=== PATIENT | female | born 1940 | race Caucasian/White ===

== ENCOUNTER 2016-04-01 12:41 | Inpatient (IN) | payer OTHER ==
[~2016-04-01] VITALS: Ht 172.7 cm; Wt 74.9 kg
[~2016-04-01 12:41] MED LIST: ACET325T96 PO; AZEL15GE TOP; BENZ100C18 PO; CARB0.25 OPB; HYG/25 PO; LEVO75TA36 PO; METO-551 PO; NMN10 PO; POTA10CA28 PO; RIVA1DIS TD; SIMV20TA5 PO; WARF-246 PO; WARF-280 PO; [UNRECOGNIZED DRUG - CODE] PO
[2016-04-01] MEDS ORDERED: SODIUM CHLORIDE 0.9% 1000ML 1,000 ML IV STA ×2 (12:56→14:28)
[2016-04-01] MEDS ORDERED: SODIUM CHLORIDE 0.9% 1000ML 250 ML IV STA (12:56)
--- NOTE | 2016-04-01 13:00 | EMERGENCY ROOM VISIT NOTE ---
History Report prepared by Dionisio: Jeff Pennington Under the Supervision of: Dr. Lg Waldrop M.D. First contact with patient: 12:49 Stated Complaint: ALTERED MENTAL STATUS History of Present Illness The patient is a 76 year old female who presents to the Emergency Room with complaints of persistent altered mental status that started prior to arrival today. Per the nursing staff, the patient is usually combative in her wheelchair but she was not combative today. The patient has dementia and Alzheimer's. She has not had any recent trauma and does not have a fever. History is limited secondary to patient's altered mental status. Source of History: nursing staff History Limited By: AMS Onset: Prior to arrival today Position: other (global - AMS) Symptom Intensity: not combative today which is not normal Associated Symptoms: No fevers Note: Associated symptoms: No recent trauma. Review of Systems ROS limited secondary to patient's altered mental status. Past Medical & Surgical Medical Problems: (1) Alzheimer's disease (2) Parkinson's disease (3) UTI (urinary tract infection) Old medical records were reviewed. Nurse's notes were reviewed and I agree with. Family History Patient reports no known family medical history. Social History Smoking Status: Never Smoker Alcohol Use: none Drug Use: none Housing Status: assisted living Occupation Status: retired Current/Historical Medications Scheduled Acetaminophen Tab (Tylenol), 650 MG PO BID@0830@2030 Carboxymethylcellulose-Glyceri (Refresh Optive Advanced), 1 DROP OPB QID Chlorthalidone (Hygroton), 25 MG PO DAILY Levothyroxine Sodium (Levothyroxine Sodium), 50 MCG PO QAM Memantine (Namenda), 10 MG PO BID Metoprolol Tartrate (Lopressor) (Lopressor), 25 MG PO BID Potassium Chloride (Micro-K Ext Rel), 60 MEQ PO QAM Potassium Chloride (Micro-K Ext Rel), 40 MEQ PO QPM Rivastigmine (Exelon), 1 PATCH TD DAILY Sennosides-Docusate Sodium (Senna Plus), 1 TAB PO QAM Simvastatin (Zocor), 20 MG PO HS Warfarin Sod (Jantoven), 5 MG PO QAM Allergies Coded Allergies: Cortisone (Verified Allergy, Intermediate, HIVES, 01/04/15) Triamcinolone (Verified Allergy, Intermediate, FACIAL SWELLING/RASH - TO KENALOG, 01/04/15) Iodinated Contrast Media (Verified Allergy, Unknown, hives, 04/01/16) Physical Exam Vital Signs Date Time Temp Pulse Resp B/P Pulse Ox O2 Delivery O2 Flow Rate FiO2 04/01/16 14:24 132 04/01/16 13:51 83 20 142/100 98 Room Air 04/01/16 13:01 36.3 85 20 118/71 97 Room Air Physical Exam General: Chronically ill appearing old female who is sleepy but arousable, she moans but is otherwise non-verbal, appears to move all 4 extremities, breathing comfortably on room air. Normal speech HEENT: Normal cephalic atraumatic. Pupils are equal round and reactive to light. Extraocular movements are intact. Oropharynx is pink with moist mucous membranes. No swelling of the mouth lips or tongue. Neck: Supple with a midline trachea. No meningeal signs or stiffness, no JVD or bruits. No Stridor. Chest: Clear to auscultation bilaterally. No wheezes or rhonchi. No increased work of breathing. Heart: regular rate and rhythm. Abdomen: Soft nontender, nondistended without rebound guarding or rigidity. Extremities: No cyanosis clubbing or edema. No calf tenderness or assymetry Spine/Back. Non tender to palpation. No CVA tenderness Skin: Good turgor without rashes. Neurologic exam: Baseline dementia, moves all 4 extremities, non-verbal with moaning. Medical Decision & Procedures ER Provider Diagnostic Interpretation: X ray results as stated below per my interpretation and radiologist interpretation. Other radiology results as stated below per my review and radiologist interpretation: CT OF THE HEAD WITHOUT CONTRAST CLINICAL HISTORY: Altered mental status. COMPARISON STUDY: Head CT January 01, 2015. CT DOSE: 614.27 mGy.cm TECHNIQUE: Helical axial images of the head were obtained without IV contrast. Automated exposure control was utilized for the study. FINDINGS: No acute intracranial hemorrhage, midline shift or mass effect is present. Ventricular dilatation is unchanged. The basilar cisterns are patent. There are no extra-axial collections. Chew-white differentiation is maintained. There are no findings to suggest acute dural sinus thrombosis or acute territorial infarct. There are no significant calvarial abnormalities. Visualized portions of the sinuses and mastoid air cells are clear. IMPRESSION: No acute intracranial findings. No significant change since prior exam. Electronically signed by: Jaxon Cleary M.D. 04/01/2016 1:46 PM Dictated Date/Time: 04/01/2016 1:44 PM CHEST ONE VIEW PORTABLE CLINICAL HISTORY: Sepsis. COMPARISON STUDY: Chest radiograph January 03, 2015. FINDINGS: Lung volumes are normal. There is no pneumothorax or pleural effusion. Minimal left basilar opacity is noted. There is no evidence of pulmonary edema. Cardiomediastinal silhouette is stable. IMPRESSION: Minimal left basilar opacity which could reflect atelectasis or mild consolidation. Electronically signed by: Jaxon Cleary M.D. 04/01/2016 1:41 PM Dictated Date/Time: 04/01/2016 1:40 PM Laboratory Results 04/01/16 13:10 Red Blood Count 4.01, Mean Corpuscular Volume 93.0, Mean Corpuscular Hemoglobin 31.4, Mean Corpuscular Hemoglobin Concent 33.8, Mean Platelet Volume 9.5, Neutrophils (%) (Auto) 78.7, Lymphocytes (%) (Auto) 14.6, Monocytes (%) (Auto) 6.3, Eosinophils (%) (Auto) 0.0, Basophils (%) (Auto) 0.2, Neutrophils # (Auto) 3.62, Lymphocytes # (Auto) 0.67, Monocytes # (Auto) 0.29, Eosinophils # (Auto) 0.00, Basophils # (Auto) 0.01 04/01/16 13:10 Test 04/01/16 12:56 04/01/16 13:00 04/01/16 13:10 04/01/16 13:14 Bedside Glucose 117 mg/dl (70-90) Urine Color YELLOW Urine Appearance CLEAR (CLEAR) Urine pH 5.0 (4.5-7.5) Urine Specific [place] 1.020 (1.000-1.030) Urine Protein NEG (NEG) Urine Glucose (UA) NEG (NEG) Urine Ketones NEG (NEG) Urine Occult Blood 2+ (NEG) Urine Nitrite POS (NEG) Urine Bilirubin NEG (NEG) Urine Urobilinogen NEG (NEG) Urine Leukocyte Esterase NEG (NEG) Urine WBC (Auto) 10-30 /hpf (0-5) Urine RBC (Auto) 0-4 /hpf (0-4) Urine Hyaline Casts (Auto) 1-5 /lpf (0-5) Urine Epithelial Cells (Auto) 20-30 /lpf (0-5) Urine Bacteria (Auto) 4+ (NEG) Urine Yeast (Auto) (NONE PRSENT) White Blood Count 4.60 K/uL (4.8-10.8) Red Blood Count 4.01 M/uL (4.2-5.4) Hemoglobin 12.6 g/dL (12.0-16.0) Hematocrit 37.3 % (37-47) Mean Corpuscular Volume 93.0 fL (80-100) Mean Corpuscular Hemoglobin 31.4 pg (25-34) Mean Corpuscular Hemoglobin Concent 33.8 g/dl (32-36) Platelet Count 154 K/uL (130-400) Mean Platelet Volume 9.5 fL (7.4-10.4) Neutrophils (%) (Auto) 78.7 % Lymphocytes (%) (Auto) 14.6 % Monocytes (%) (Auto) 6.3 % Eosinophils (%) (Auto) 0.0 % Basophils (%) (Auto) 0.2 % Neutrophils # (Auto) 3.62 K/uL (1.4-6.5) Lymphocytes # (Auto) 0.67 K/uL (1.2-3.4) Monocytes # (Auto) 0.29 K/uL (0.11-0.59) Eosinophils # (Auto) 0.00 K/uL (0-0.5) Basophils # (Auto) 0.01 K/uL (0-0.2) RDW Standard Deviation 46.9 fL (36.4-46.3) RDW Coefficient of Variation 13.7 % (11.5-14.5) Immature Granulocyte % (Auto) 0.2 % Immature Granulocyte # (Auto) 0.01 K/uL (0.00-0.02) Prothrombin Time 23.1 SECONDS (9.0-12.0) Prothromb Time International Ratio 2.1 (0.9-1.1) Activated Partial Thromboplast Time 33.0 SECONDS (21.0-31.0) Partial Thromboplastin Ratio 1.3 Anion Gap 8.0 mmol/L (3-11) Est Creatinine Clear Calc Drug Dose 59.9 ml/min Estimated GFR () 84.4 Estimated GFR (Non- 72.8 BUN/Creatinine Ratio 25.4 (10-20) Calcium Level 9.8 mg/dl (8.5-10.1) Total Bilirubin 0.6 mg/dl (0.2-1) Aspartate Amino Transf (AST/SGOT) 47 U/L (15-37) Alanine Aminotransferase (ALT/SGPT) 62 U/L (12-78) Alkaline Phosphatase 75 U/L (45-117) Total Protein 7.3 gm/dl (6.4-8.2) Albumin 3.6 gm/dl (3.4-5.0) Globulin 3.7 gm/dl (2.5-4.0) Albumin/Globulin Ratio 1.0 (0.9-2) Bedside Lactic Acid Venous 2.04 mmol/L (0.90-1.70) Test 04/01/16 13:16 Bedside Troponin I 0.000 ng/ml (0-0.045) Laboratory studies as stated above per my review. Medications Administered Medications (Trade) Dose Ordered Sig/Ariana Route Start Time Stop Time Status Last Admin Dose Admin Sodium Chloride 250 ml @ 999 mls/hr Q16M STAT IV 04/01/16 12:56 04/01/16 13:11 DC 04/01/16 12:56 999 MLS/HR Sodium Chloride 1,000 ml @ 100 mls/hr Q10H STAT IV 04/01/16 12:56 04/01/16 16:40 DC 04/01/16 12:56 100 MLS/HR Sodium Chloride (Nss 1000ml) 1,000 ml @ 999 mls/hr Q1H1M STAT IV 04/01/16 14:28 04/01/16 15:28 DC 04/01/16 14:28 999 MLS/HR Levofloxacin (Levaquin / D5W) 750 mg NOW ONCE IV 04/01/16 14:30 04/01/16 14:31 DC 04/01/16 14:40 750 MG ECG Indication: altered mental status Rate (beats per minute): 82 Rhythm: atrial fibrillation, other (poor baseline) Findings: PVC (occasional), no acute ischemic change, other (low voltage) Comparison ECG Date: Compared to 01/03/2015, rate has decreased ED Course 1251: Past medical records reviewed. The patient was evaluated in room B7, history and physical examination limited secondary to patient's AMS. 1256: Ordered NSS 1000 ml @ 100 mls/hr IV, NSS 250 ml @ 999 mls/hr IV. 1333: I talked to a family member of the patient. 1428: Ordered NSS 1000 ml @ 999 mls/hr IV. 1430: Ordered Levaquin / D5W 750 mg IV. 1431: I discussed the patient with Dr. Brendon VEE engineering consultant - he will evaluate the patient for further treatment. 1433: I reevaluated the patient and she is resting comfortably. The patient's family verbally expressed agreement and understanding of the treatment plan. The patient will be evaluated for further treatment. Medical Decision Differential diagnoses include: sepsis, dehydration, hypoglycemia, electrolyte or metabolic abnormality, UTI, intracranial process. This patient comes in as described above. She was placed in room B7. She is here for treatment and evaluation of altered mental status. She does have ahistory of severe dementia however is much more sedate than normal and normally she is very active. She does get frequent UTIs. IV access was established , she's been normotensive. . She was hydrated IV normal saline. Chest x-ray, EKG,CAT scan of her head and multiple blood testing was obtained. She has no acute intracranial process seen. Her lactic acid is mildly elevated just over 2. She has no white count. Her urinalysis does suggest a UTI. She was given fluid boluses while she was here additionally she was given Levaquin 750 mg IV. I do think she needs to be admitted for sepsis related to a UTI and altered mental status related to this. I discussed the case with her daughter who is at the bedside and she agrees with the plan. The patient is a DO NOT RESUSCITATE. I have consulted Dr. Kramer and they will admit her. Consults Time Called: 1428 Consulting Physician: Dr. Brendon VEE engineering consultant Returned Call: [phone] I discussed the patient with Dr. Brendon VEE engineering consultant - he will evaluate the patient for further treatment. Impression Primary Impression: Sepsis Additional Impressions: UTI (urinary tract infection), Altered mental status Scribe Attestation The scribe's documentation has been prepared under my direction and personally reviewed by me in its entirety. I confirm that the note above accurately reflects all work, treatment, procedures, and medical decision making performed by me. Departure Information Dispostion Being Evaluated By Hospitalist Referrals [place], Heena (PCP)
[2016-04-01] MEDS ORDERED: METO25TA56 PO (13:05)
[2016-04-01] MEDS ORDERED: LEVO50TA6 PO (13:05)
[2016-04-01] MEDS ORDERED: POTA10CA28 PO ×2 (13:05)
[2016-04-01] MEDS ORDERED: SENN1TAB65 PO (13:05)
[2016-04-01] MEDS ORDERED: WARF5TAB7 PO (13:05)
[2016-04-01 13:27] LABS: BASO % 0.2 %; BASO ABS # 0.01 K/uL (0-0.2); COMPLETE YES; HEMATOCRIT 37.3 % (37-47); IG% 0.2 %; LYMPH % 14.6 %; LYMPH ABS # 0.67 K/uL (1.2-3.4); MEAN CORPUSCULAR HEMOGLOBIN 31.4 pg (25-34); MEAN CORPUSCULAR HGB CONC 33.8 g/dl (32-36); MEAN PLATELET VOLUME 9.5 fL (7.4-10.4); MONO % 6.3 %; NEUT % 78.7 %; PLATELET COUNT 154 K/uL (130-400); RED BLOOD COUNT 4.01 M/uL (4.2-5.4)
[2016-04-01 13:38] LABS: MANUAL MICROSCOPIC REQUIRED? NO; REVIEW REQ? YES; URINE APPEARANCE CLEAR (CLEAR); URINE BILIRUBIN NEG (NEG); URINE COLOR YELLOW; URINE EPITHELIAL CELL AUTO 20-30 /lpf (0-5); URINE NITRITE POS (NEG); UROBILINOGEN NEG (NEG)
[2016-04-01 13:40] LABS: INR 2.1 (0.9-1.1); PARTIAL THROMBOPLASTIN RATIO 1.3; PROTHROMBIN TIME (PATIENT) 23.1 SECONDS (9.0-12.0)
--- NOTE | 2016-04-01 13:43 | DIAGNOSTIC IMAGING REPORT ---
CHEST ONE VIEW PORTABLE CLINICAL HISTORY: Sepsis. COMPARISON STUDY: Chest radiograph January 03, 2015. FINDINGS: Lung volumes are normal. There is no pneumothorax or pleural effusion. Minimal left basilar opacity is noted. There is no evidence of pulmonary edema. Cardiomediastinal silhouette is stable. IMPRESSION: Minimal left basilar opacity which could reflect atelectasis or mild consolidation. Electronically signed by: Jaxon Cleary M.D. 04/01/2016 1:41 PM Dictated Date/Time: 04/01/2016 1:40 PM
[2016-04-01 13:44] LABS: BUN/CREATININE RATIO 25.4 (10-20); CALCIUM 9.8 mg/dl (8.5-10.1); CREATININE 0.78 mg/dl (0.60-1.20); POTASSIUM 3.9 mmol/L (3.5-5.1)
--- NOTE | 2016-04-01 13:48 | DIAGNOSTIC IMAGING REPORT ---
CT OF THE HEAD WITHOUT CONTRAST CLINICAL HISTORY: Altered mental status. COMPARISON STUDY: Head CT January 01, 2015. CT DOSE: 614.27 mGy.cm TECHNIQUE: Helical axial images of the head were obtained without IV contrast. Automated exposure control was utilized for the study. FINDINGS: No acute intracranial hemorrhage, midline shift or mass effect is present. Ventricular dilatation is unchanged. The basilar cisterns are patent. There are no extra-axial collections. Chew-white differentiation is maintained. There are no findings to suggest acute dural sinus thrombosis or acute territorial infarct. There are no significant calvarial abnormalities. Visualized portions of the sinuses and mastoid air cells are clear. IMPRESSION: No acute intracranial findings. No significant change since prior exam. Electronically signed by: Jaxon Cleary M.D. 04/01/2016 1:46 PM Dictated Date/Time: 04/01/2016 1:44 PM
[2016-04-01] MEDS ORDERED: LEVAQUIN 750MG / 150ML D5W IV ONE (14:30)
[2016-04-01] MEDS ORDERED: DiphenhydrAMINE HCL 50 MG/ML VIAL IV PRN ×2 (16:00)
[2016-04-01] MEDS ORDERED: ONDANSETRON INJ 2 MG/ML 2 ML VIAL IV PRN (16:00)
[2016-04-01] MEDS ORDERED: ACETAMINOPHEN IV 100 ML IV PRN (16:00)
[2016-04-01 16:30] VITALS: BP 131/88; PULSE 80; TEMP 36.5; O2SAT 100
[2016-04-01] MEDS: NSS + 20MEQ KCL 1000ML 1,000 ML IV SCH (18:17)
[2016-04-01 18:36] VITALS: BP 131/88; PULSE 80; TEMP 36.5; O2SAT 100; Ht 172.7 cm; Wt 74.9 kg
--- NOTE | 2016-04-01 21:35 | History and Physical ---
History & Physical Date & Time of Service: Apr 01, 2016 at 21:20 Chief Complaint: Sepsis; Urinary Tract Infection Primary Care Physician: Heena Lockwood History of Present Illness Source: family, clinic records, hospital records The patient is a 76-year-old female resident with severe Alzheimer's dementia, who is a resident of [facility] care home, with a history of recurrent urinary tract infections, who is brought to the emergency department due to altered mental status that started prior to arrival today. She does not have any obvious signs of trauma or illness. Initial urinalysis looks to be infected , and the patient is presumed to have a recurrent UTI as a cause of her altered state. Past Medical/Surgical History Medical Problems: (1) Alzheimer's disease Status: Chronic (2) Parkinson's disease Status: Chronic (3) UTI (urinary tract infection) Status: Chronic Family History Patient reports no known family medical history. Social History Smoking Status: Never Smoker Smokeless Tobacco Use: No Alcohol Use: none Drug Use: none Housing status: care home Occupational Status: retired Immunizations History of Influenza Vaccine: Yes Influenza Vaccine Date: Jan 08, 2005 History of Tetanus Vaccine?: No Tetanus Immunization Date: May 11, 1999 History of Pneumococcal: No History of Hepatitis B Vaccine: No Multi-Drug Resistant Organisms History of MDRO: No Allergies Coded Allergies: Cortisone (Verified Allergy, Intermediate, HIVES, 01/04/15) Triamcinolone (Verified Allergy, Intermediate, FACIAL SWELLING/RASH - TO KENALOG, 01/04/15) Iodinated Contrast Media (Verified Allergy, Unknown, hives, 04/01/16) Home Medications Scheduled Acetaminophen Tab (Tylenol), 650 MG PO BID@0830@2030 Carboxymethylcellulose-Glyceri (Refresh Optive Advanced), 1 DROP OPB QID Chlorthalidone (Hygroton), 25 MG PO DAILY Levothyroxine Sodium (Levothyroxine Sodium), 50 MCG PO QAM Memantine (Namenda), 10 MG PO BID Metoprolol Tartrate (Lopressor) (Lopressor), 25 MG PO BID Potassium Chloride (Micro-K Ext Rel), 60 MEQ PO QAM Potassium Chloride (Micro-K Ext Rel), 40 MEQ PO QPM Rivastigmine (Exelon), 1 PATCH TD DAILY Sennosides-Docusate Sodium (Senna Plus), 1 TAB PO QAM Simvastatin (Zocor), 20 MG PO HS Warfarin Sod (Jantoven), 5 MG PO QAM Review of Systems The review of systems, as the history of present illness, is severely restricted due to the patient's altered mental status and baseline severe dementia, and is provided by her daughter who is present during the examination. Physical Exam Vital Signs Date Time Temp Pulse Resp B/P Pulse Ox O2 Delivery O2 Flow Rate FiO2 04/01/16 18:36 36.5 80 18 131/88 100 Room Air 04/01/16 16:30 36.5 80 18 131/88 100 Room Air 04/01/16 15:35 79 18 129/83 100 Room Air 04/01/16 14:24 132 04/01/16 13:51 83 20 142/100 98 Room Air 04/01/16 13:01 36.3 85 20 118/71 97 Room Air The patient is nonresponsive, lying with mouth open, in no acute distress. HEENT--PERRL, mucous membranes and oropharynx dry. Neck--supple, no JVD or bruits, thyroid normal, trachea midline, no adenopathy. Heart--normal S1 and S2, no extra beats, no murmurs, rubs or gallops. Lungs--clear bilaterally, no respiratory distress, no accessory muscle use. Abdomen--normal bowel sounds and soft, nondistended, no hernias or masses, no organomegaly. Extremities--no cyanosis, clubbing or edema. There are good distal pulses b/l. Dermatologic--normal skin turgor, normal color, warm and dry, no abnormal lymph nodes, no rash. Neurologic--limited due to altered state Rheumatologic--deferred due to altered state Psychiatric--nonresponsive Diagnostics Laboratory Results Results Past 24 Hours Test 04/01/16 12:56 04/01/16 13:00 04/01/16 13:10 04/01/16 13:14 Range/Units Bedside Glucose 117 70-90 mg/dl Urine Color YELLOW Urine Appearance CLEAR CLEAR Urine pH 5.0 4.5-7.5 Urine Specific [place] 1.020 1.000-1.030 Urine Protein NEG NEG Urine Glucose (UA) NEG NEG Urine Ketones NEG NEG Urine Occult Blood 2+ NEG Urine Nitrite POS NEG Urine Bilirubin NEG NEG Urine Urobilinogen NEG NEG Urine Leukocyte Esterase NEG NEG Urine WBC (Auto) 10-30 0-5 /hpf Urine RBC (Auto) 0-4 0-4 /hpf Urine Hyaline Casts (Auto) 1-5 0-5 /lpf Urine Epithelial Cells (Auto) 20-30 0-5 /lpf Urine Bacteria (Auto) 4+ NEG Urine Yeast (Auto) NONE PRSENT White Blood Count 4.60 4.8-10.8 K/uL Red Blood Count 4.01 4.2-5.4 M/uL Hemoglobin 12.6 12.0-16.0 g/dL Hematocrit 37.3 37-47 % Mean Corpuscular Volume 93.0 80-100 fL Mean Corpuscular Hemoglobin 31.4 25-34 pg Mean Corpuscular Hemoglobin Concent 33.8 32-36 g/dl Platelet Count 154 130-400 K/uL Mean Platelet Volume 9.5 7.4-10.4 fL Neutrophils (%) (Auto) 78.7 % Lymphocytes (%) (Auto) 14.6 % Monocytes (%) (Auto) 6.3 % Eosinophils (%) (Auto) 0.0 % Basophils (%) (Auto) 0.2 % Neutrophils # (Auto) 3.62 1.4-6.5 K/uL Lymphocytes # (Auto) 0.67 1.2-3.4 K/uL Monocytes # (Auto) 0.29 0.11-0.59 K/uL Eosinophils # (Auto) 0.00 0-0.5 K/uL Basophils # (Auto) 0.01 0-0.2 K/uL RDW Standard Deviation 46.9 36.4-46.3 fL RDW Coefficient of Variation 13.7 11.5-14.5 % Immature Granulocyte % (Auto) 0.2 % Immature Granulocyte # (Auto) 0.01 0.00-0.02 K/uL Prothrombin Time 23.1 9.0-12.0 SECONDS Prothromb Time International Ratio 2.1 0.9-1.1 Activated Partial Thromboplast Time 33.0 21.0-31.0 SECONDS Partial Thromboplastin Ratio 1.3 Sodium Level 139 136-145 mmol/L Potassium Level 3.9 3.5-5.1 mmol/L Chloride Level 102 98-107 mmol/L Carbon Dioxide Level 29 21-32 mmol/L Anion Gap 8.0 3-11 mmol/L Blood Urea Nitrogen 20 7-18 mg/dl Creatinine 0.78 0.60-1.20 mg/dl Est Creatinine Clear Calc Drug Dose 59.9 ml/min Estimated GFR () 84.4 Estimated GFR (Non- 72.8 BUN/Creatinine Ratio 25.4 10-20 Random Glucose 113 70-99 mg/dl Calcium Level 9.8 8.5-10.1 mg/dl Total Bilirubin 0.6 0.2-1 mg/dl Aspartate Amino Transf (AST/SGOT) 47 15-37 U/L Alanine Aminotransferase (ALT/SGPT) 62 12-78 U/L Alkaline Phosphatase 75 45-117 U/L Total Protein 7.3 6.4-8.2 gm/dl Albumin 3.6 3.4-5.0 gm/dl Globulin 3.7 2.5-4.0 gm/dl Albumin/Globulin Ratio 1.0 0.9-2 Bedside Lactic Acid Venous 2.04 0.90-1.70 mmol/L Test 04/01/16 13:16 Range/Units Bedside Troponin I 0.000 0-0.045 ng/ml Microbiology Results 04/01/16 Blood Culture, Received Pending 04/01/16 Blood Culture, Received Pending 04/01/16 Urine Culture, Received Pending Diagnostic Radiology Patient Name: SOPHY MA Unit Number: [id number] Dictated: 04/01/161343 Transcribed: 04/01/161343 JA Printed Date/Time: [~ rep prt dt]/[~ rep prt tm] [~ rep ct labl] - [~ rep ct ivnm] [facility] [place] [address] Dictated: 04/01/161343 Transcribed: 04/01/161343 JA Printed Date/Time: [~ rep prt dt]/[~ rep prt tm] [~ rep ct labl] - [~ rep ct ivnm] CT OF THE HEAD WITHOUT CONTRAST CLINICAL HISTORY: Altered mental status. COMPARISON STUDY: Head CT January 01, 2015. CT DOSE: 614.27 mGy.cm TECHNIQUE: Helical axial images of the head were obtained without IV contrast. Automated exposure control was utilized for the study. FINDINGS: No acute intracranial hemorrhage, midline shift or mass effect is present. Ventricular dilatation is unchanged. The basilar cisterns are patent. There are no extra-axial collections. Chew-white differentiation is maintained. There are no findings to suggest acute dural sinus thrombosis or acute territorial infarct. There are no significant calvarial abnormalities. Visualized portions of the sinuses and mastoid air cells are clear. IMPRESSION: No acute intracranial findings. No significant change since prior exam. Electronically signed by: Jaxon Cleary M.D. 04/01/2016 1:46 PM Dictated Date/Time: 04/01/2016 1:44 PM The status of this report is Signed. Draft = Not yet reviewed or approved by Radiologist. Signed = Reviewed and approved by Radiologist. <AttendingPhy></AttendingPhy> <FamilyPhy>Ambrosio Swanson M.D.</FamilyPhy > <PrimaryPhy>[facility]</PrimaryPhy> <UnitNumber>[id number]</UnitNumber> < VisitNumber>[id number]</VisitNumber> <PatientName>SOPHY MA</PatientName> < DateOfBirth>1940</DateOfBirth> <Location>[facility]</Location> <ServiceDate>10/09</ServiceDate> <MNE>ESINDI</MNE> <OrderingPhy>Lg Waldrop M.D.</ OrderingPhy> <OrderingPhyMNE>f rep ord dr carr</OrderingPhyMNE> <DictatingPhyMNE> f rep dict dr carr</DictatingPhyMNE> <CCListMNE>f rep ct bruno</CCListMNE> < AdmittingPhyMNE>f pt admit dr carr</AdmittingPhyMNE> <AttendingPhyMNE>f pt attend dr carr</AttendingPhyMNE> <ConsultingPhyMNE>f pt consult dr carr</ConsultingPhyMNE> <FamilyPhyMNE>f pt fam dr carr</FamilyPhyMNE> <OtherPhyMNE>f pt other dr carr</OtherPhyMNE> < PrimaryPhyMNE>f pt prim care dr carr</PrimaryPhyMNE> <ReferringPhyMNE>f pt referring dr crar</ReferringPhyMNE> Patient Name: SOPHY MA Unit Number: [id number] Dictated: 04/01/[id number] Transcribed: 04/01/161339 JA Printed Date/Time: [~ rep prt dt]/[~ rep prt tm] [~ rep ct labl] - [~ rep ct ivnm] [facility] [place] [place] [address] Dictated: 04/01/[id number] Transcribed: 04/01/161339 JA Printed Date/Time: [~ rep prt dt]/[~ rep prt tm] [~ rep ct labl] - [~ rep ct ivnm] CHEST ONE VIEW PORTABLE CLINICAL HISTORY: Sepsis. COMPARISON STUDY: Chest radiograph January 03, 2015. FINDINGS: Lung volumes are normal. There is no pneumothorax or pleural effusion. Minimal left basilar opacity is noted. There is no evidence of pulmonary edema. Cardiomediastinal silhouette is stable. IMPRESSION: Minimal left basilar opacity which could reflect atelectasis or mild consolidation. Electronically signed by: Jaxon Cleary M.D. 04/01/2016 1:41 PM Dictated Date/Time: 04/01/2016 1:40 PM The status of this report is Signed. Draft = Not yet reviewed or approved by Radiologist. Signed = Reviewed and approved by Radiologist. <AttendingPhy></AttendingPhy> <FamilyPhy>Ambrosio Swanson M.D.</FamilyPhy > <PrimaryPhy>[facility]</PrimaryPhy> <UnitNumber>[id number]</UnitNumber> < VisitNumber>[id number]</VisitNumber> <PatientName>SOPHY MA</PatientName> < DateOfBirth>1940</DateOfBirth> <Location>[facility]</Location> <ServiceDate>10/09</ServiceDate> <MNE>ESINDI</MNE> <OrderingPhy>Lg Waldrop M.D.</ OrderingPhy> <OrderingPhyMNE>f rep ord dr carr</OrderingPhyMNE> <DictatingPhyMNE> f rep dict dr carr</DictatingPhyMNE> <CCListMNE>f rep ct mne</CCListMNE> < AdmittingPhyMNE>f pt admit dr carr</AdmittingPhyMNE> <AttendingPhyMNE>f pt attend dr carr</AttendingPhyMNE> <ConsultingPhyMNE>f pt consult dr carr</ConsultingPhyMNE> <FamilyPhyMNE>f pt fam dr carr</FamilyPhyMNE> <OtherPhyMNE>f pt other dr carr</OtherPhyMNE> < PrimaryPhyMNE>f pt prim care dr carr</PrimaryPhyMNE> <ReferringPhyMNE>f pt referring dr carr</ReferringPhyMNE> Impression Assessment and Plan Recurrent UTI/SIRS--causing alteration of baseline demented state--the patient will be admitted to the medical floor. She'll be continued on levofloxacin 500 mg IV every 24 hours, begun in the ED. We'll also place on normal saline with potassium chloride 20 mEq at 100 mils per hour. We'll follow serial BMP and magnesium levels. We'll follow urine culture sensitivity. She will be kept nothing by mouth, until she is rehydrated, and her mental status improves enough to have oral intake without concern of aspiration. Alzheimer's dementia--patient's daughter notes this is being severe and that the patient has not at her baseline in a responsive state. We will hold Namenda 10 mg by mouth twice a day while nothing by mouth, and will not be able to use Exelon patch since its nonformulary. Atrial fibrillation--her warfarin dose of 5 mg every morning gives her a therapeutic level of INR of 2.1. Repeat INR in the a.m., and if she is unable to take oral medications at that time, would start therapeutic Lovenox. Hypertension--blood pressure is normal at this point while volume depleted. Hold Toprol tartrate 25 mg by mouth twice a day, chlorthalidone 25 mg by mouth daily, potassium chloride 60 mEq by mouth every morning and 40 mEq by mouth every afternoon. Hypercholesterolemia--hold simvastatin 20 mg by mouth at bedtime while nothing by mouth. Level of Care Med/Surg Advanced Directives Existing Advance Directive: Yes Existing Living Will: Yes Existing Power of Rn Homecare: Yes Resuscitation Status FULL RESUSCITATION VTE Prophylaxis VTE Risk Assessment Done? Y/N: Yes Risk Level: Moderate Given or contraindicated: Enoxaparin (Lovenox)SQ, Warfarin (Coumadin) Social Service Consult Lives in Assisted
[2016-04-01 23:54] VITALS: BP 138/96; PULSE 98; TEMP 36.7; O2SAT 95
[2016-04-02] MEDS: NSS + 20MEQ KCL 1000ML 1,000 ML IV SCH ×2 (03:35→13:11)
[2016-04-02 07:12] LABS: BASO % 0.2 %; BASO ABS # 0.01 K/uL (0-0.2); COMPLETE YES; HEMATOCRIT 36.8 % (37-47); IG% 0.2 %; LYMPH % 19.9 %; LYMPH ABS # 0.87 K/uL (1.2-3.4); MEAN CELL VOLUME 92.5 fL (80-100); MEAN CORPUSCULAR HEMOGLOBIN 31.7 pg (25-34); MEAN CORPUSCULAR HGB CONC 34.2 g/dl (32-36); MEAN PLATELET VOLUME 9.5 fL (7.4-10.4); MONO % 9.6 %; NEUT % 70.1 %; PLATELET COUNT 130 K/uL (130-400); RED BLOOD COUNT 3.98 M/uL (4.2-5.4); WHITE BLOOD COUNT 4.37 K/uL (4.8-10.8)
[2016-04-02 07:37] LABS: PARTIAL THROMBOPLASTIN RATIO 1.2; PROTHROMBIN TIME (PATIENT) 21.6 SECONDS (9.0-12.0)
[2016-04-02 07:38] VITALS: BP 157/70; PULSE 93; TEMP 36.7; O2SAT 91
[2016-04-02 07:46] LABS: BUN/CREATININE RATIO 15.6 (10-20); CALCIUM 9.7 mg/dl (8.5-10.1); CREATININE 0.65 mg/dl (0.60-1.20); POTASSIUM 3.7 mmol/L (3.5-5.1)
[2016-04-02] MEDS ORDERED: LEVOTHYROXINE SODIUM INJ 25 MCG in SYRINGE 0 ML IV SCH (09:00)
--- NOTE | 2016-04-02 14:28 | Hospitalist Progress Note ---
Hospitalist Progress Note Date of Service Apr 02, 2016. Subjective Pt evaluation today including: conversation w/ patient, conversation w/ family (son on phone), physical exam, chart review, lab review, review of studies, review of inpatient medication list PO Intake: NPO Pt nonverbal except stuttering which son says is her baseline for the last year. Unobtainable ROS. Afebrile, on abx, alert and awake. Son reports no h/o dysphagia ever or aspiration he is aware of Constitutional: No fever Additional Comments: ROS unobtainable due to severe dementia Objective Vital Signs Date Time Temp Pulse Resp B/P Pulse Ox O2 Delivery O2 Flow Rate FiO2 04/02/16 08:30 Room Air 04/02/16 07:38 36.7 93 18 157/70 91 Room Air 04/02/16 00:00 Room Air 04/01/16 23:54 36.7 98 18 138/96 95 Room Air 04/01/16 18:36 36.5 80 18 131/88 100 Room Air 04/01/16 16:30 36.5 80 18 131/88 100 Room Air 04/01/16 15:35 79 18 129/83 100 Room Air 04/01/16 14:24 132 Physical Exam General Appearance: WD/WN, no apparent distress (a little agitated with physical exam) Eyes: normal inspection, sclerae normal Neck: trachea midline Respiratory/Chest: lungs clear, normal breath sounds, no respiratory distress, no accessory muscle use Cardiovascular: no edema, no gallop, no murmur, + irregularly irregular (with reg rate) Abdomen: normal bowel sounds, non tender, soft Extremities: no pedal edema Neurologic/Psychiatric: alert, + pertinent finding (nonverbal, does not follow commands) Skin: normal color, warm/dry, no rash Laboratory Results Last 24 Hours Test 04/02/16 06:45 White Blood Count 4.37 K/uL Red Blood Count 3.98 M/uL Hemoglobin 12.6 g/dL Hematocrit 36.8 % Mean Corpuscular Volume 92.5 fL Mean Corpuscular Hemoglobin 31.7 pg Mean Corpuscular Hemoglobin Concent 34.2 g/dl Platelet Count 130 K/uL Mean Platelet Volume 9.5 fL Neutrophils (%) (Auto) 70.1 % Lymphocytes (%) (Auto) 19.9 % Monocytes (%) (Auto) 9.6 % Eosinophils (%) (Auto) 0.0 % Basophils (%) (Auto) 0.2 % Neutrophils # (Auto) 3.06 K/uL Lymphocytes # (Auto) 0.87 K/uL Monocytes # (Auto) 0.42 K/uL Eosinophils # (Auto) 0.00 K/uL Basophils # (Auto) 0.01 K/uL RDW Standard Deviation 45.0 fL RDW Coefficient of Variation 13.4 % Immature Granulocyte % (Auto) 0.2 % Immature Granulocyte # (Auto) 0.01 K/uL Prothrombin Time 21.6 SECONDS Prothromb Time International Ratio 2.0 Activated Partial Thromboplast Time 31.3 SECONDS Partial Thromboplastin Ratio 1.2 Sodium Level 145 mmol/L Potassium Level 3.7 mmol/L Chloride Level 109 mmol/L Carbon Dioxide Level 26 mmol/L Anion Gap 10.0 mmol/L Blood Urea Nitrogen 10 mg/dl Creatinine 0.65 mg/dl Est Creatinine Clear Calc Drug Dose 71.9 ml/min Estimated GFR () 98.6 Estimated GFR (Non- 85.0 BUN/Creatinine Ratio 15.6 Random Glucose 84 mg/dl Calcium Level 9.7 mg/dl Magnesium Level 2.0 mg/dl Assessment and Plan Pt is a 76 yo female with a h/o chronic A-fib on half-way AC, severe dementia ( nonverbal, wheelchair bound), dyslipidemia, HTN, hypothyroidism, recurrent UTIs , here with acute metabolic encephalopathy, UTI. Lactate 2.04 and some tachycardia on admission. No fever, no leukocytosis. Recurrent UTI, acute metabolic encephalopathy--Ur cx growing GNRs, alpha strep not Enterococcus. Mental status improved today with treatment for UTI - continued on levofloxacin 500 mg IV every 24 hours -continue normal saline with potassium chloride 20 mEq but decrease to 75 mls/ hr until taking po again -restart diet with clears if passes bedside swallow by RN today as Speech not available today -follow urine culture ID/sensitivity -could probably go back to [facility] tomrorow if BCxs neg and Ur cx ID back Alzheimer's dementia-- severe, nonverbal, wheelchair bound but does use feet to get around, resides in [place], no h/o dysphagia. -restart Namenda 10 mg by mouth twice a day -asked son to bring in her Exelon patch since its non formulary -supportive care Chronic Atrial fibrillation-- -continue warfarin -check PT/INR in the AM -restart metoprolol now Hypertension--blood pressure rising with IVFs and were holding BP meds while NPO -restart metoprolol, chlorthalidone , KCl Hypercholesterolemia- -continue simvastatin 20 mg by mouth Proph-coumadin DISPO- FULL CODE back to [facility] when ready PT/OT/ST david
[2016-04-02] MEDS ORDERED: CHLORTHALIDONE 25 MG TAB PO ONE (14:30)
[2016-04-02] MEDS ORDERED: WARFARIN SOD 5 MG TAB PO ONE (14:30)
[2016-04-02] MEDS ORDERED: LEVOFLOXACIN / D5W 500 MG in PREMIXED IN D5W 100 ML IV SCH (15:00)
[2016-04-02 17:06] VITALS: BP 113/80; PULSE 97; TEMP 36.8; O2SAT 92
[2016-04-02] MEDS ORDERED: POTASSIUM CHLORIDE 20 MEQ TABCR PO SCH (21:00)
[2016-04-02] MEDS ORDERED: SIMVASTATIN 20 MG TAB PO SCH (21:00)
[2016-04-02] MEDS: ACETAMINOPHEN 325 MG TAB PO SCH (21:13)
[2016-04-02] MEDS: METOPROLOL TARTRATE 25 MG TAB PO SCH (21:13)
[2016-04-02] MEDS: MEMANTINE 10 MG TAB PO SCH (21:13)
[2016-04-02 23:58] VITALS: BP 140/80; PULSE 89; TEMP 36.8; O2SAT 92
[2016-04-03] MEDS: NSS + 20MEQ KCL 1000ML 1,000 ML IV SCH (03:13)
[2016-04-03] MEDS ORDERED: LEVOTHYROXINE 50 MCG TAB PO SCH (06:30)
[2016-04-03 07:31] LABS: BASO % 0.2 %; BASO ABS # 0.01 K/uL (0-0.2); COMPLETE YES; HEMATOCRIT 36.4 % (37-47); IG% 0.2 %; LYMPH % 21.9 %; LYMPH ABS # 0.95 K/uL (1.2-3.4); MEAN CELL VOLUME 91.2 fL (80-100); MEAN CORPUSCULAR HEMOGLOBIN 31.8 pg (25-34); MEAN CORPUSCULAR HGB CONC 34.9 g/dl (32-36); MEAN PLATELET VOLUME 9.4 fL (7.4-10.4); MONO % 10.4 %; NEUT % 67.3 %; PLATELET COUNT 134 K/uL (130-400); RED BLOOD COUNT 3.99 M/uL (4.2-5.4); WHITE BLOOD COUNT 4.34 K/uL (4.8-10.8)
[2016-04-03 07:38] VITALS: BP 148/98; PULSE 82; TEMP 36.9; O2SAT 96
[2016-04-03 07:40] LABS: PARTIAL THROMBOPLASTIN RATIO 1.3; PROTHROMBIN TIME (PATIENT) 21.7 SECONDS (9.0-12.0)
[2016-04-03] MEDS: ACETAMINOPHEN 325 MG TAB PO SCH (07:42)
[2016-04-03] MEDS: MEMANTINE 10 MG TAB PO SCH (07:43)
[2016-04-03] MEDS: METOPROLOL TARTRATE 25 MG TAB PO SCH (07:43)
[2016-04-03 07:58] LABS: BUN/CREATININE RATIO 14.9 (10-20); CREATININE 0.7 mg/dl (0.60-1.20); MAGNESIUM 1.8 mg/dl (1.8-2.4); POTASSIUM 3.8 mmol/L (3.5-5.1)
[2016-04-03] MEDS ORDERED: DOCUSATE SODIUM/SENNA 50/8.6MG TAB PO SCH (09:00)
[2016-04-03] MEDS ORDERED: CHLORTHALIDONE 25 MG TAB PO SCH (09:00)
[2016-04-03] MEDS ORDERED: CEFTRIAXONE SOD INJ 1 GM in DEXTROSE 5% ADD-VANTAGE 50ML 50 ML IV SCH (09:00)
[2016-04-03] MEDS ORDERED: CEFT1INJ26 IV (09:24)
--- NOTE | 2016-04-03 09:29 | Discharge Instructions ---
Discharge Instructions Admission Reason for Admission: Sepsis; Urinary Tract Infection Discharge Discharge Diagnosis / Problem: encephalopathy from UTI and volume depletion Discharge Goals Goal(s): Diagnostic testing, Therapeutic intervention Activity Recommendations Activity Level: Assistance Required . Additional Information Patient informed of condition: Yes (unable to comprehend due to dementia) Advance Directives: Yes DNR: Yes Level of Care: Skilled Communicable Disease: No Prognosis: Stable Instructions / Follow-Up Instructions / Follow-Up UTI - providencia resistant to quinolones, sensitive to third gen cephalosporins - will complete Rx w ceftriaxone 1g IV or IM for six more days ( to complete 7) had IV fluids - improved hydration status. encourage PO intake, follow up BMP 2 -3 days PT/INR at time of next lab draw speech eval - did not show any concerns for aspiration when here, did not have pneumonia, but clinical question was raised, so outpatient speech eval to ensure no occult aspiration risks that need to be addressed (CXR showed minimal L base opacity, but clinically did not appear c/w pneumonia) Current Hospital Diet Patient's current hospital diet: Clear Liquid Diet Discharge Diet Recommended Diet: N/A (resume previous diet; please have speech therapy eval) Pending Studies Studies pending at discharge: no Medical Emergencies . Who to Call and When: Medical Emergencies: If at any time you feel your situation is an emergency, please call 911 immediately. . Non-Emergent Contact Non-Emergency issues call your: Primary Care Provider . . "Provider Documentation" section prepared by Adiel Kennedy. Core Measure Problem Core Measures: None
[2016-04-03 10:26] VITALS: BP 148/98; PULSE 82; TEMP 36.9; O2SAT 96
--- NOTE | 2016-04-03 11:32 | Discharge Summary ---
Discharge Summary Admission Date: Apr 01, 2016 at 15:11 Discharge Date: Apr 03, 2016 Discharge Disposition: correction facility Immunizations: Have You Had Influenza Vaccine: Yes Influenza Vaccine Date: Jan 08, 2005 History of Tetanus Vaccine?: No Tetanus Immunization Date: May 11, 1999 History of Pneumococcal: No History of Hepatitis B Vaccine: No Procedures: urine culture w provendencia - resistant to quinolones, as well as alpha strep not enterococcus Last Resulted CBC 04/03/16 07:01 Red Blood Count 3.99, Mean Corpuscular Volume 91.2, Mean Corpuscular Hemoglobin 31.8, Mean Corpuscular Hemoglobin Concent 34.9, Mean Platelet Volume 9.4, Neutrophils (%) (Auto) 67.3, Lymphocytes (%) (Auto) 21.9, Monocytes (%) (Auto) 10.4, Eosinophils (%) (Auto) 0.0, Basophils (%) (Auto) 0.2, Neutrophils # (Auto ) 2.92, Lymphocytes # (Auto) 0.95, Monocytes # (Auto) 0.45, Eosinophils # (Auto ) 0.00, Basophils # (Auto) 0.01 Last Resulted BMP 04/03/16 07:01 mild prerenal status on admission w BUN:Cr ~25:1 Medication Reconciliation New Medications: Ceftriaxone Sodium (Rocephin) 1 Gm Inj 1 GM IV DAILY, #6 DOSE Continued Medications: Acetaminophen Tab (Tylenol) 325 Mg Tab 650 MG PO BID@0830@2030, TAB Carboxymethylcellulose-Glyceri (Refresh Optive Advanced) 1 Nurys Nurys 1 DROP OPB QID Chlorthalidone (Hygroton) 25 Mg Tab 25 MG PO DAILY, TAB Levothyroxine Sodium (Levothyroxine Sodium) 50 Mcg Tab 50 MCG PO QAM for 90 Days, #90 TAB 3 Refills Memantine (Namenda) 10 Mg Tab 10 MG PO BID, TAB Metoprolol Tartrate (Lopressor) (Lopressor) 25 Mg Tab 25 MG PO BID, TAB Potassium Chloride (Micro-K Ext Rel) 10 Meq Capcr 60 MEQ PO QAM, CAP TAKE 6 CAPS TO EQUAL 60MEQ Potassium Chloride (Micro-K Ext Rel) 10 Meq Capcr 40 MEQ PO QPM, CAP TAKE 4 CAPS TO EQUAL 40MEQ Rivastigmine (Exelon) 13.3 Mg/24 Hr Dis 1 PATCH TD DAILY Sennosides-Docusate Sodium (Senna Plus) 1 Tab Tab 1 TAB PO QAM Simvastatin (Zocor) 20 Mg Tab 20 MG PO HS, TAB Warfarin Sod (Jantoven) 5 Mg Tab 5 MG PO QAM, TAB Discharge Exam Physical Exam: General Appearance: no apparent distress Eyes: EOMI ENT: hearing grossly normal Neck: trachea midline Respiratory/Chest: lungs clear, normal breath sounds, no respiratory distress, no accessory muscle use Cardiovascular: regular rate, rhythm Extremities: normal inspection, no calf tenderness, no pedal edema Neurologic/Psychiatric: road grader II-XII nml as tested, + disoriented Skin: normal color, warm/dry Hospital Course Pt is a 76 yo female with a h/o chronic A-fib on [facility] AC, severe dementia ( nonverbal, wheelchair bound), dyslipidemia, HTN, hypothyroidism, recurrent UTIs , here with acute metabolic encephalopathy, UTI, mild prerenal status. Lactate 2.04 and some tachycardia on admission. No fever, no leukocytosis. Recurrent UTI, acute metabolic encephalopathy--Ur cx as above -improved w levaquin despite resistance on Cx -- ?encephalopathy due to mild prerenal state as well -finish Rx w ceftriaxone due to sensitivities -stable for return to SNF level of care Alzheimer's dementia-- severe, nonverbal, wheelchair bound but does use feet to get around, resides in [place], no h/o dysphagia. -restart Namenda 10 mg by mouth twice a day -Exelon patch Chronic Atrial fibrillation-- -continue home meds, follow INR Hypertension--resume home meds, f/u BMP later this week Hypercholesterolemia- -continue simvastatin 20 mg by mouth DVT Proph-coumadin concern on dysphagia - admitting physician raised concern of dysphagia / aspiration - pt has not shown any s/s of this; there was questionable LLL findings on CXR - but more than likely atelectasis since she showed no other s/ s pneumonia. would have pt resume her previous diet as she had been on at [facility], but to "close the loop" on this issue, would have speech therapy eval and treat at SNF Total Time Spent: Less than 30 minutes This includes examination of the patient, discharge planning, medication reconciliation, and communication with other providers. Discharge Instructions Please refer to the electronic Patient Visit Report (Discharge Instructions) for additional information. Additional Copies To [place] [place]
[2016-04-03] MEDS ORDERED: WARFARIN SOD 5 MG TAB PO SCH (16:00)
== END 2016-04-03 12:15 | DRG 689 ==
LOC: ENRESERVDT → ENRESERVTM → EDBD 12:41 → C.EDB 12:43 → C.MED 15:11
PROVIDERS: ADMIT Hospitalist; ATTEND Family Medicine
DX: N39.0 Urinary tract infection, site not specified (principal); G93.41 Metabolic encephalopathy; I48.2 Chronic atrial fibrillation; G30.9 Alzheimer's disease, unspecified; I10 Essential (primary) hypertension; G20 Parkinson's disease; F02.80 Dementia in other diseases classified elsewhere, unspecified severity, without behavioral disturbance, psychotic disturbance, mood disturbance, and anxiety; E78.00 Pure hypercholesterolemia, unspecified; Z99.3 Dependence on wheelchair; E03.9 Hypothyroidism, unspecified; Z79.01 Long term (current) use of anticoagulants

== ENCOUNTER → 2016-04-06 | Outpatient (CLI) | payer OTHER ==
[~2016-04-06] MED LIST changes: -AZEL15GE TOP; -BENZ100C18 PO; +CEFT1INJ26 IV; +LEVO50TA6 PO; -LEVO75TA36 PO; -METO-551 PO; +METO25TA56 PO; +SENN1TAB65 PO; -WARF-246 PO; -WARF-280 PO; +WARF5TAB7 PO; -[UNRECOGNIZED DRUG - CODE] PO
[2016-04-06 08:15] LABS: BLOOD UREA NITROGEN 24 mg/dl (7-18); BUN/CREATININE RATIO 31.8 (10-20); CALCIUM 10.1 mg/dl (8.5-10.1); CARBON DIOXIDE 27 mmol/L (21-32); CHLORIDE 110 mmol/L (98-107); CREATININE 0.76 mg/dl (0.60-1.20); GLUCOSE 89 mg/dl (70-99); POTASSIUM 3.9 mmol/L (3.5-5.1); SODIUM 147 mmol/L (136-145)
[2016-04-06 08:21] LABS: INR 1.4 (0.9-1.1); PROTHROMBIN TIME (PATIENT) 15.6 SECONDS (9.0-12.0)
--- NOTE | 2016-04-14 10:44 | CODING QUERY NO DIAGNOSIS ---
: 1940 TREATMENT RENDERED WITHOUT A DIAGNOSIS To promote full compliance with coding requirements relating to patient care, physician participation is requested in all cases of mix house operator uncertainty. Please assist us with providing a diagnosis/symptom for the test(s) below: A diagnosis/symptom was not documented on your Order. A valid diagnosis/symptom is required to bill all insurances. Please remember that we are unable to code a diagnosis of rule out, probable, possible, questionable, or suspected. Tests that require a diagnosis: * PARTIAL RENAL PROFILE DOS: 04/06/16 DIAGNOSIS: * PROTHROMBIN TIME PRO DOS: 04/06/16 DIAGNOSIS: Provider Signature: Date: Thank you Rosi [facility] Health Information Management Once completed, please kindly fax back to [phone] For questions please call [phone]
== END ==
LOC: C.LABCC 07:53
PROVIDERS: ATTEND Internal Medicine
DX: I48.91 Unspecified atrial fibrillation (principal)

== ENCOUNTER → 2016-04-14 | Outpatient (CLI) | payer OTHER ==
[2016-04-14 08:11] LABS: BLOOD UREA NITROGEN 23 mg/dl (7-18); BUN/CREATININE RATIO 30.8 (10-20); CALCIUM 9.9 mg/dl (8.5-10.1); CARBON DIOXIDE 26 mmol/L (21-32); CHLORIDE 107 mmol/L (98-107); CREATININE 0.74 mg/dl (0.60-1.20); GLUCOSE 82 mg/dl (70-99); POTASSIUM 3.9 mmol/L (3.5-5.1); SODIUM 141 mmol/L (136-145)
[2016-04-14 08:12] LABS: INR 2.1 (0.9-1.1); PROTHROMBIN TIME (PATIENT) 23.3 SECONDS (9.0-12.0)
== END ==
LOC: C.LABCC 07:50
PROVIDERS: ATTEND Internal Medicine
DX: I48.91 Unspecified atrial fibrillation (principal); E87.0 Hyperosmolality and hypernatremia

== ENCOUNTER → 2016-04-17 | Outpatient (CLI) | payer OTHER ==
[2016-04-17 17:49] LABS: URINE APPEARANCE TURBID (CLEAR); URINE BILIRUBIN NEG (NEG); URINE COLOR YELLOW; URINE NITRITE NEG (NEG); URINE SPECIFIC GRAVITY 1.025 (1.000-1.030); UROBILINOGEN NEG (NEG)
[2016-04-17 18:13] LABS: MANUAL MICROSCOPIC REQUIRED? YES; REVIEW REQ? NO
[2016-04-17 19:11] LABS: URINE BACTERIA NEG (NEG); URINE WBC >30 /hpf (0-5)
== END ==
LOC: C.LABCC 17:26
PROVIDERS: ATTEND Internal Medicine
DX: R53.83 Other fatigue (principal); R53.1 Weakness

== ENCOUNTER → 2016-04-24 | Outpatient (CLI) | payer OTHER ==
[2016-04-24 09:09] LABS: INR 2.1 (0.9-1.1)
== END ==
LOC: C.LABCC 08:40
PROVIDERS: ATTEND Internal Medicine
DX: I48.91 Unspecified atrial fibrillation (principal)

== ENCOUNTER → 2016-05-09 | Outpatient (CLI) | payer OTHER ==
[2016-05-09 08:50] LABS: INR 2.9 (0.9-1.1); PROTHROMBIN TIME (PATIENT) 32.6 SECONDS (9.0-12.0)
== END ==
LOC: C.LABCC 08:12
PROVIDERS: ATTEND Internal Medicine
DX: I48.91 Unspecified atrial fibrillation (principal)

== ENCOUNTER → 2016-05-23 | Outpatient (CLI) | payer OTHER ==
[2016-05-23 08:47] LABS: INR 2.3 (0.9-1.1); PROTHROMBIN TIME (PATIENT) 25.1 SECONDS (9.0-12.0)
== END ==
LOC: C.LABCC 08:18
PROVIDERS: ATTEND Internal Medicine
DX: I48.2 Chronic atrial fibrillation (principal)

== ENCOUNTER → 2016-05-29 | Outpatient (CLI) | payer OTHER ==
[2016-05-30 00:29] LABS: MANUAL MICROSCOPIC REQUIRED? NO; REVIEW REQ? NO; URINE APPEARANCE CLEAR (CLEAR); URINE BILIRUBIN NEG (NEG); URINE COLOR YELLOW; URINE EPITHELIAL CELL AUTO 20-30 /lpf (0-5); URINE NITRITE NEG (NEG); URINE PH 5.5 (4.5-7.5); URINE SPECIFIC GRAVITY 1.022 (1.000-1.030); UROBILINOGEN NEG (NEG)
--- NOTE | 2016-06-08 08:40 | CODING QUERY NO DIAGNOSIS ---
TREATMENT RENDERED WITHOUT A DIAGNOSIS Dr. Guido, To promote full compliance with coding requirements relating to patient care, physician participation is requested in all cases of physician coder uncertainty. Please assist us with providing a diagnosis/symptom for the test(s) below: A diagnosis/symptom was not documented on your Order. A valid diagnosis/symptom is required to bill all insurances. Please remember that we are unable to code a diagnosis of rule out, probable, possible, questionable, or suspected. Tests that require a diagnosis: * URINE CULTURE DIAGNOSIS: * URINE M.I.C. SENSITIVITY DIAGNOSIS: * ID, URINE CULTURE ISOLATE DIAGNOSIS: * URINALYSIS W/ MICROSCOPY DIAGNOSIS: DATE OF SERVICE: 05/29/16 Provider Signature: Date: Thank you Hany [facility]blood [facility] Information Management Once completed, please kindly fax back to [phone] For questions please call [phone]
== END | disposition home or self-care (01) ==
LOC: C.LABCC 10:49
PROVIDERS: ATTEND Internal Medicine
DX: R53.83 Other fatigue (principal); R41.82 Altered mental status, unspecified

== ENCOUNTER → 2016-06-05 | Outpatient (CLI) | payer OTHER ==
[2016-06-05 08:33] LABS: INR 2.7 (0.9-1.1); PROTHROMBIN TIME (PATIENT) 30.2 SECONDS (9.0-12.0)
== END ==
LOC: C.LABCC 07:54
PROVIDERS: ATTEND Internal Medicine
DX: I48.91 Unspecified atrial fibrillation (principal)

== ENCOUNTER → 2016-06-12 | Outpatient (CLI) | payer OTHER ==
[2016-06-12 10:51] LABS: INR 1.8 (0.9-1.1); PROTHROMBIN TIME (PATIENT) 19.8 SECONDS (9.0-12.0)
== END ==
LOC: C.LABCC 09:06
PROVIDERS: ATTEND Internal Medicine
DX: I48.91 Unspecified atrial fibrillation (principal)

== ENCOUNTER → 2016-06-23 | Outpatient (CLI) | payer OTHER ==
[2016-06-23 08:29] LABS: INR 2.1 (0.9-1.1); PROTHROMBIN TIME (PATIENT) 23.5 SECONDS (9.0-12.0)
== END ==
LOC: C.LABCC 07:54
PROVIDERS: ATTEND Internal Medicine
DX: I48.91 Unspecified atrial fibrillation (principal)

== ENCOUNTER → 2016-06-27 | Outpatient (CLI) | payer OTHER ==
[2016-06-27 09:02] LABS: INR 1.4 (0.9-1.1); PROTHROMBIN TIME (PATIENT) 15.2 SECONDS (9.0-12.0)
== END | disposition home or self-care (01) ==
LOC: C.LABCC 08:24
PROVIDERS: ATTEND Internal Medicine
DX: I48.91 Unspecified atrial fibrillation (principal)

== ENCOUNTER → 2016-06-28 | Outpatient (CLI) | payer OTHER ==
[2016-06-28 08:20] LABS: BASO % 0.2 %; BASO ABS # 0.01 K/uL (0-0.2); COMPLETE YES; EOS % 0.2 %; HEMATOCRIT 34.6 % (37-47); IG% 0.2 %; LYMPH % 26.3 %; LYMPH ABS # 1.19 K/uL (1.2-3.4); MEAN CELL VOLUME 93.3 fL (80-100); MEAN CORPUSCULAR HEMOGLOBIN 32.6 pg (25-34); MEAN PLATELET VOLUME 9.9 fL (7.4-10.4); MONO % 10.2 %; NEUT % 62.9 %; PLATELET COUNT 135 K/uL (130-400); RED BLOOD COUNT 3.71 M/uL (4.2-5.4); WHITE BLOOD COUNT 4.52 K/uL (4.8-10.8)
[2016-06-28 08:26] LABS: BLOOD UREA NITROGEN 19 mg/dl (7-18); CALCIUM 9.6 mg/dl (8.5-10.1); CARBON DIOXIDE 26 mmol/L (21-32); CHLORIDE 110 mmol/L (98-107); CHOLESTEROL 157 mg/dl (0-200); GLUCOSE 86 mg/dl (70-99); POTASSIUM 3.7 mmol/L (3.5-5.1); SODIUM 144 mmol/L (136-145)
[2016-06-28 08:36] LABS: CHOLESTEROL/HDL RATIO 3.7; HDL CHOLESTEROL 42 mg/dl; LDL CHOLESTEROL CALCULATED 94 mg/dl; TRIGLYCERIDES 107 mg/dl (0-150); VERY LOW DENSITY LIPOPROT CALC 21 mg/dl
== END ==
LOC: C.LABCC 08:02
PROVIDERS: ATTEND Internal Medicine
DX: E03.9 Hypothyroidism, unspecified (principal); I10 Essential (primary) hypertension; E78.5 Hyperlipidemia, unspecified

== ENCOUNTER → 2016-07-05 | Outpatient (CLI) | payer OTHER ==
[2016-07-05 09:08] LABS: INR 2.3 (0.9-1.1); PROTHROMBIN TIME (PATIENT) 25.5 SECONDS (9.0-12.0)
== END ==
LOC: C.LABCC 07:52
PROVIDERS: ATTEND Internal Medicine
DX: I48.91 Unspecified atrial fibrillation (principal)

== ENCOUNTER → 2016-07-13 | Outpatient (CLI) | payer OTHER ==
[2016-07-13 10:22] LABS: INR 2.3 (0.9-1.1); PROTHROMBIN TIME (PATIENT) 25.8 SECONDS (9.0-12.0)
== END ==
LOC: C.LABCC 09:07
PROVIDERS: ATTEND Internal Medicine
DX: I48.91 Unspecified atrial fibrillation (principal)

== ENCOUNTER → 2016-07-21 | Outpatient (CLI) | payer OTHER ==
[2016-07-21 08:32] LABS: BASO % 0.2 %; BASO ABS # 0.02 K/uL (0-0.2); COMPLETE YES; HEMATOCRIT 46.8 % (37-47); IG% 0.1 %; LYMPH % 17.2 %; LYMPH ABS # 1.39 K/uL (1.2-3.4); MEAN CELL VOLUME 98.3 fL (80-100); MEAN CORPUSCULAR HEMOGLOBIN 32.1 pg (25-34); MEAN CORPUSCULAR HGB CONC 32.7 g/dl (32-36); MEAN PLATELET VOLUME 11.1 fL (7.4-10.4); MONO % 10.9 %; NEUT % 71.6 %; PLATELET COUNT 208 K/uL (130-400); RED BLOOD COUNT 4.76 M/uL (4.2-5.4); WHITE BLOOD COUNT 8.09 K/uL (4.8-10.8)
[2016-07-21 08:47] LABS: ALT/SGPT 34 U/L (12-78); BLOOD UREA NITROGEN 37 mg/dl (7-18); BUN/CREATININE RATIO 39.1 (10-20); CARBON DIOXIDE 26 mmol/L (21-32); CHLORIDE 115 mmol/L (98-107); CREATININE 0.94 mg/dl (0.60-1.20); GLUCOSE 116 mg/dl (70-99); POTASSIUM 3.3 mmol/L (3.5-5.1); SODIUM 151 mmol/L (136-145)
[2016-07-21 08:49] LABS: ALB/GLOB RATIO 0.9 (0.9-2); ALKALINE PHOSPHATASE 69 U/L (45-117); AST/SGOT 28 U/L (15-37)
[2016-07-21 08:59] LABS: CALCIUM 11.5 mg/dl (8.5-10.1)
== END ==
LOC: C.LABCC 08:10
PROVIDERS: ATTEND Internal Medicine
DX: R50.9 Fever, unspecified (principal)

== ENCOUNTER → 2016-07-21 | Outpatient (CLI) | payer OTHER ==
[2016-07-21 17:19] LABS: URINE APPEARANCE TURBID (CLEAR); URINE COLOR DK YELLOW; URINE EPITHELIAL CELL AUTO >30 /lpf (0-5); URINE NITRITE NEG (NEG); URINE SPECIFIC GRAVITY 1.038 (1.000-1.030); UROBILINOGEN NEG (NEG)
[2016-07-21 17:23] LABS: MANUAL MICROSCOPIC REQUIRED? NO; REVIEW REQ? YES
[2016-07-21 17:24] LABS: URINE BILIRUBIN NEG (NEG)
== END ==
LOC: C.LABCC 16:47
PROVIDERS: ATTEND Internal Medicine
DX: R50.9 Fever, unspecified (principal)